=== PATIENT | female | born 1970 | race Hispanic/Latino ===

== ENCOUNTER 2023-10-23 00:10 | Emergency (ER) | payer OTHER ==
[~2023-10-23] VITALS: Ht 160 cm; Wt 78.7 kg
[~2023-10-23 00:10] MED LIST: NORCO 5-325 TA1 EACH PO
[2023-10-23] MEDS ORDERED: AMOX TR-K CLV1 EAC1 PO (00:43)
[2023-10-23] MEDS ORDERED: COLACE100 MG PO (00:44)
[2023-10-23] MEDS ORDERED: KETOROLAC TROMETHAMINE 30 MG/ML VIAL IV ONE (01:00)
[2023-10-23] MEDS ORDERED: LACTATED RINGER'S 1,000 ML IV ONE ×2 (01:15→03:45)
[2023-10-23 01:20] LABS: BASOPHILS 0.4 % (0-2); EOSINOPHILS 2.4 % (0-6); HEMATOCRIT 22.3 % (35.0-50.0); HEMOGLOBIN 7.4 g/dL (12.0-18.0); LYMPHOCYTES 12.2 % (24-44); MCH 30.3 (27-36); MCHC 33.3 g/dl (30-36); MCV 90.9 fl (81-99); MONOCYTES 7.3 % (0-12); NEUTROPHILS 77.7 % (39-80); PLATELET COUNT 288 K/uL (140-440); RBC 2.45 M/ul (4.3-5.7); RDW 13.8 (10.5-15.0)
[2023-10-23 01:33] LABS: ALBUMIN 2.3 g/dL (3.4-5.0); ALBUMIN/GLOBULIN RATIO 0.43 (1.1-2.4); ANION GAP 13.6 (7-21); BILIRUBIN, TOTAL 1.4 ng/dL (0.2-1.0); BUN/CREATININE RATIO 21.77 (6.0-28.6); CALCIUM 8.6 mg/dL (8.5-10.1); CREATININE, SERUM 1.24 mg/dL (0.55-1.02); POTASSIUM 3.6 mmol/L (3.5-5.1); PROTEIN, TOTAL 7.6 g/dL (6.4-8.2)
[2023-10-23] MEDS ORDERED: FAMOTIDINE 20 MG/ 2 ML VIAL IV ONE (02:30)
[2023-10-23] MEDS ORDERED: ASPIRIN 81 MG CHEW PO ONE (02:30)
[2023-10-23 03:04] LABS: BILIRUBIN, URINE NEGATIVE (negative); BLOOD/HGB, URINE NEGATIVE (Negative); KETONE, URINE NEGATIVE (Negative); LEUK ESTERASE, URINE TRACE (negative); NITRITE, URINE NEGATIVE (negative); PH, URINE 5.5 (5-7)
[2023-10-23 03:18] LABS: BACTERIA, URINE 1+ /hpf (negative); CASTS, URINE HYALINE 1+ \\lpf; COLLECTION TYPE, URINE CLEAN CATCH; CRYSTALS, URINE NONE SEEN (0-1+); EPITHELIAL CELLS, URINE SQUAMOUS 2+ /lpf (0-1+); REFLEX CULTURE, URINE No (No)
[2023-10-23 03:20] LABS: LACTIC ACID, BLOOD 0.7 mmol/L (0.4-2.0)
[2023-10-23] MEDS ORDERED: MEROPENEM 1,000 MG VIAL IV ONE (03:40)
[2023-10-23 03:43] LABS: ABO O; ANTIBODY SCREEN NEGATIVE; RH POSITIVE
[2023-10-23] MEDS ORDERED: MEROPENEM 1,000 MG in SODIUM CHLORIDE 0.9% 100 ML IV ONE (03:45)
[2023-10-23] MEDS ORDERED: MORPHINE SULFATE 4 MG/ML VIAL IV ONE (04:00)
--- NOTE | 2023-10-23 05:13 | EKG ---
[facility] [address] [facility] [place], [place] [address] Signed Sinus tachycardia Cannot rule out Inferior infarct , age undetermined Abnormal ECG No previous ECGs available Confirmed by Ethan Kern ([id number]) on 10/23/2023 5:13:24 AM Electronically Signed By: ETHAN KERN MD 10/23/23512 PATIENT NAME: AGIL LIZARRAGA Electrocardiogram DATE OF : 70 PHYSICIAN: ETHAN KERN MD REPORT #: [id number] REPORT IS CONFIDENTIAL AND NOT TO BE RELEASED WITHOUT AUTHORIZATION
[2023-10-23 06:00] VITALS: BP 146/76
== END 2023-10-23 06:00 | disposition short-term general hospital (02) ==
LOC: ED 00:10
PROVIDERS: Internal Medicine
DX: R10.11 Right upper quadrant pain (principal); D64.9 Anemia, unspecified; I10 Essential (primary) hypertension; Z90.49 Acquired absence of other specified parts of digestive tract
CPT/HCPCS: 36415; 74177; 80053; 81001; 83605; 83690; 84484; 84703; 85025; 86850; 86900; 86901; 87040; 93005; 93010; 96361; 96365; 96375; 99285-25; A9270; J1885; J2185; J7121; Q9967